=== PATIENT | male | born 1975 | race African-American/Black ===

== ENCOUNTER → 2017-12-17 | Outpatient (CLI) | payer OTHER, SELFPAY ==
--- NOTE | 2017-12-17 | DI.MRI.S_ITS ---
PROCEDURE: MR LUMBAR SPINE WO CON INDICATIONS: LOW BACK PAIN TECHNIQUE: Noncontrast sagittal T1 spin echo and T2 fast echo, sagittal STIR, axial T1 and T2 fast spin echo through the lumbar spine. In cases with scoliosis, additional coronal T2 fast spin echo may be performed. COMPARISON: None. FINDINGS: Image quality: Excellent. Alignment and Curvature: There is normal bony alignment. Bone Marrow: Degenerative endplate signal changes in L5 and S1. No acute vertebral body compression fractures. Spinal Cord: Conus medullaris terminates at the T12-L1 level. Visualized cord demonstrates normal signal and size. Paraspinous Soft Tissues: No paravertebral masses. L1-L2: Normal appearance. L2-L3: Normal appearance. L3-L4: Normal appearance. L4-L5: Moderate loss of disc height and disc desiccation. There is broad posterior disc bulge. The central canal is mildly narrowed. Moderate left and mild right foraminal stenosis. L5-S1: Severe loss of disc height and disc desiccation. There is broad posterior disc bulge and disc osteophyte complex. The central canal is mildly narrowed. Moderate bilateral foraminal stenosis. IMPRESSION: 1. Multilevel degenerative disc disease lumbar spine as described. 2. Mild central canal stenosis at L4-L5 and L5-S1. 3. Moderate foraminal stenosis at L4-L5 on the left and L5-S1 bilaterally. Dictated by: Jaquelin Collazo M.D. on 12/17/2017 at 15:24 Transcribed by: PRASHANTH on 12/17/2017 at 15:28 Approved by: Jaquelin Collazo M.D. on 12/18/2017 at 9:50
== END ==
LOC: MRI 13:02
DX: M51.36 Other intervertebral disc degeneration, lumbar region (principal); M54.5 Low back pain; M48.061 Spinal stenosis, lumbar region without neurogenic claudication; M48.07 Spinal stenosis, lumbosacral region
CPT/HCPCS: 72148; 77080

== ENCOUNTER → 2018-05-07 07:08 | Outpatient (CLI) | payer OTHER, SELFPAY ==
--- NOTE | 2018-05-07 | DI.MRI.S_ITS ---
PROCEDURE: MR HUMERUS LT WO CON INDICATIONS: INJURY OF LEFT TRICEP TENDON TECHNIQUE: Noncontrast coronal and sagittal T1 spin echo and STIR; axial T1 spin echo and T2 fast spin echo with fat saturation through the left humerus to include the elbow region, optimize for triceps tendon rupture visualization.. COMPARISON: None. FINDINGS: Image quality: Excellent. Bones: The visualized bone marrow demonstrates normal signal on all sequences. The overlying cortex appears intact. No fractures lines or intra-osseous lesions. Soft tissues: The scanned muscles demonstrate normal overall bulk and internal signal except at the triceps where mild edema is present within the substance of the musculature inferiorly, associated with rupture of the triceps tendon at its medial and middle third as indicated by interposition of fluid signal through that portion of the distal triceps tendon, but several fibrils appear intact along the lateral border of the triceps tendon, without retraction cephalad in that area. Subcutaneous tissues appear normal as well. No soft tissue masses are present. IMPRESSION: Subtotal triceps tendon rupture, with contact fibrils of the lateral third of the triceps tendon. The middle and medial thirds of the triceps tendon is ruptured and partially retracted cephalad. Adjacent muscular edema is present, involving the distal triceps over a distance of approximately 6 cm craniocaudad and tapering cephalad. No hematoma is associated, no osseous injury is found. Dictated by: Tonio Bourgeois M.D. on 05/07/2018 at 8:48 Approved by: Tonio Bourgeois M.D. on 05/07/2018 at 9:01
== END ==
PROVIDERS: Visit Provider Family Medicine
DX: S46.312A Strain of muscle, fascia and tendon of triceps, left arm, initial encounter (principal)
CPT/HCPCS: 73218